=== PATIENT | male | born 2000 | race Caucasian/White ===

== ENCOUNTER 2021-11-13 12:46 | Emergency (ER) | payer OTHER, SELFPAY ==
--- NOTE | ~2021-11-13 | XR_ITS ---
EXAMINATION: XR chest 2V DATE: 11/13/2021 13:02 INDICATION: Heart palpitations. TECHNIQUE: Frontal and lateral views of the chest were obtained. COMPARISON: None. FINDINGS: The chest demonstrates clear lungs without pneumonia, pleural effusion, or pneumothorax. Th e heart size is normal. IMPRESSION: 1. No acute cardiopulmonary disease. Reviewed, dictated and finalized at location A.
[2021-11-13 12:49] VITALS: BP 135/78; PULSE 87; RESP 12; TEMP 37.2; O2SAT 98
--- NOTE | 2021-11-13 12:53 | ECG_ITS ---
Measurements Intervals [place] Rate: 94 P: 66 LA: 144 QRS: 66 QRSD: 103 T: 4 QT: 345 QTc: 431 Interpretive Statements SINUS RHYTHM WITH SINUS ARRHYTHMIA BORDERLINE ST-T WAVE ABNORMALITY- ANT/INF LEADS BASELINE ARTIFACT- I, III, AVL, V3 BORDERLINE ECG NO PREVIOUS ECG AVAILABLE FOR COMPARISON Electronically Signed On 11-13-2021 21:42:17 CDT by Bret Andre D.O.
--- NOTE | 2021-11-13 12:57 | ED.SOB ---
HPI - SOB/Dyspnea General Chief Complaint: Shortness of Breath/Dyspnea Stated Complaint: shortness of breath Time Seen by Provider: 11/13/21 12:57 History of Present Illness HPI Narrative: Patient is a 21-year-old male presenting with shortness of breath. Patient states that he was working out yesterday when he developed shortness of breath. States that it feels like the wind is being knocked out of him. States he has also had some palpitations. He denies any chest pain or lightheadedness. Denies leg swelling. States that he had a rib injury several weeks ago so he has not been working out lately. States that yesterday was the first workout that he has pushed himself since the injury. Denies fevers, cough, abdominal pain, nausea or vomiting, diarrhea, dysuria. Related Data Allergies Allergy/AdvReac Type Severity Reaction Status Date / Time No Known Allergies Allergy Verified 11/13/21 12:47 Review of Systems Review of Systems: All systems reviewed & are unremarkable except as noted in HPI and below Exam Narrative: GENERAL: Well-appearing, well-nourished, and in no acute distress. HEAD: Normocephalic, atraumatic. EYES: PERRLA and EOMI. ENT: Nares clear, no rhinorrhea or epistaxis. Mucous membranes moist. NECK: Supple. CHEST: Clear to auscultation. No respiratory distress. HEART: Regular rate and rhythm. No murmur heard. Normal peripheral pulses. ABDOMEN: Soft, nontender, nondistended, normal active bowel sounds. EXTREMITIES: Normal range of motion. No edema. SKIN: Warm, dry, no rash. NEURO: No focal deficits. Alert and oriented x3. PSYCH: Normal mood and affect. Course Vital Signs Vital signs: Vital Signs Temperature 99.0 F 11/13/21 12:49 Pulse Rate 87 11/13/21 12:49 Respiratory Rate 12 11/13/21 12:49 Blood Pressure 135/78 11/13/21 12:49 Pulse Oximetry 98 11/13/21 12:49 Oxygen Delivery Room Air 11/13/21 12:49 Temperature 99.0 F 11/13/21 12:49 Pulse Rate 64 11/13/21 14:50 Respiratory Rate 20 11/13/21 14:50 Blood Pressure 121/90 11/13/21 14:50 Pulse Oximetry 99 11/13/21 14:50 Oxygen Delivery Room Air 11/13/21 12:59 MDM - SOB/Dyspnea MDM Narrative Medical decision making narrative: Patient is a 21-year-old male presenting with shortness of breath and palpitations. Patient was slightly tachycardic on arrival, his vitals are within normal limits. Exam is unremarkable. Chest x-ray shows no acute abnormalities. EKG per my interpretation shows sinus rhythm with a sinus arrhythmia, normal axis and intervals, no ST elevations or depressions. Blood work is unremarkable. D-dimer is negative. Discussed the reassuring work-up with the patient. Advised follow-up with primary care. Appropriate return precautions given. Patient voiced understanding and is agreeable with plan. Discharged in stable condition. Lab Data Result diagrams: 11/13/21 13:16 11/13/21 13:16 Labs: Lab Results 11/13/21 11/13/21 11/13/21 Range/Units 13:16 13:16 13:16 WBC 6.2 (4.5-10.0) K/mm3 RBC 5.08 (4.6-6.20) M/mm3 Hgb 15.1 (14.0-18.0) g/dL Hct 45.1 (42.0-52.0) % MCV 88.8 (80-100) fl MCH 29.7 (26-34) pg MCHC 33.5 (32-36) g/dl RDW 12.5 (11.5-14.5) % Plt Count 198 (150-375) k/mm3 MPV 10.0 (7.4-10.4) fl Immature Gran % (Auto) 0.3 (0-0.5) % Neut % (Auto) 70.9 (45.5-73.1) % Lymph % (Auto) 21.1 (18.3-44.2) % Atkinson % (Auto) 5.8 (2.6-8.5) % Eos % (Auto) 1.6 (0-4.4) % Baso % (Auto) 0.3 (0.2-1.2) % Lymph # (Auto) 1.30 (0.9-3.2) K/mm3 Atkinson # (Auto) 0.4 (0.1-0.6) K/mm3 Eos # (Auto) 0.1 (0-0.3) K/mm3 Baso # (Auto) 0.0 (0.0-0.1) K/mm3 Abs Immat Gran (auto) 0.02 (0.00-0.031) K/mm3 Absolute Neuts (auto) 4.4 (1.3-6.7) K/mm3 Absolute Nucleated RBC 0.0 (0.0-0.012) K/mm3 Nucleated RBC % 0.0 (0.0-0.2) % D-Dimer < 0.27 (<0.48) ug/mL Sodium 138 (137-145)
[2021-11-13 12:59] VITALS: PULSE 101; O2SAT 98
[2021-11-13] MEDS: SODIUM CHLORIDE 0.9% IV 1,000 ML 999 ML IV CONT (13:25)
[2021-11-13 13:27] LABS: Basophils Percent Auto 0.3 % (0.2-1.2); Eosinophils Absolute Auto 0.1 K/mm3 (0-0.3); Eosinophils Percent Auto 1.6 % (0-4.4); Hematocrit 45.1 % (42.0-52.0); Hemoglobin 15.1 g/dL (14.0-18.0); Immature Granulocyte Absolute 0.02 K/mm3 (0.00-0.031); Immature Granulocyte Percent A 0.3 % (0-0.5); Lymphocytes Percent Auto 21.1 % (18.3-44.2); Mean Corpuscular HGB Conc 33.5 g/dl (32-36); Mean Corpuscular Hemoglobin 29.7 pg (26-34); Mean Corpuscular Volume 88.8 fl (80-100); Monocytes Absolute Auto 0.4 K/mm3 (0.1-0.6); Monocytes Percent Auto 5.8 % (2.6-8.5); Neutrophils Absolute Auto 4.4 K/mm3 (1.3-6.7); Neutrophils Percent Auto 70.9 % (45.5-73.1); Platelet Count Result 198 k/mm3 (150-375); Red Blood Count 5.08 M/mm3 (4.6-6.20); Red Cell Distribution Width 12.5 % (11.5-14.5); White Blood Count 6.2 K/mm3 (4.5-10.0)
[2021-11-13 13:40] LABS: Alanine Aminotransferase 24 U/L (6-50); Albumin Level 4.9 g/dL (3.5-5.1); Alkaline Phosphatase 81 U/L (38-126); Anion Gap 14 mmol/L (8-16); Aspartate Amino Transferase 29 U/L (17-59); Bilirubin,Total 2.4 mg/dL (0.2-1.3); Blood Urea Nitrogen 17 mg/dL (9-20); Calcium 10.3 mg/dL (8.4-10.2); Carbon Dioxide 23 mmol/L (22-30); Chloride 101 mmol/L (98-107); Estimated CRCL calculation 109 ml/min; Estimated Glomerular Filt Rate > 60; Glucose 98 mg/dL (65-110); Potassium 3.7 mmol/L (3.4-5.0); Sodium 138 mmol/L (137-145)
[2021-11-13 13:43] LABS: D Dimer < 0.27 ug/mL (<0.48)
[2021-11-13 14:08] LABS: SARS-CoV-2 RNA PCR Negative
[2021-11-13 14:50] VITALS: BP 121/90; PULSE 64; RESP 20; O2SAT 99
== END 2021-11-13 14:52 | disposition home or self-care (01) ==
PROVIDERS: Emergency Provider Emergency Medicine
DX: R06.02 Shortness of breath (principal); R00.2 Palpitations; Z20.822 Contact with and (suspected) exposure to COVID-19; R94.31 Abnormal electrocardiogram [ECG] [EKG]
CPT/HCPCS: 36415; 71046; 80053; 83735; 85025; 85380; 93005; 96360; 99284; C9803; J7030; U0003; U0005

== ENCOUNTER 2021-12-03 10:25 | Outpatient (CLI) | payer OTHER, SELFPAY ==
--- NOTE | 2021-12-03 10:44 | ECHO_ITS ---
Patient Info Name: Harvey Escudero Age: 21 years : 2000 Gender: Male Ht: 75 in Wt: 230 lbs BSA: 2.37 m2 HR: 62 bpm BP: 118 / 62 mmHg Technical Quality: Good Exam Date: 12/03/2021 11:08 AM Exam Location: [facility] Patient Status: Outpatient Admit Date: 12/03/2021 Staff Ordering Physician: Tushar Cantu MD Environmental Monitoring Technician: Shahana Field RDCS Attending Provider: Tushar Cantu MD Referring Physician: Pepe MANN; Exam Type: CA echo doppler color flow Study Info Indications R00.2 - Palpitations Complete two-dimensional, color flow and Doppler transthoracic echocardiogram is performed. Summary 1. Complete two-dimensional, color flow and Doppler transthoracic echocardiogram is performed. 2. Left ventricular chamber dimension is moderately enlarged. 3. Left ventricular systolic function is normal, estimated at 55-60%. 4. The left ventricular diastolic function is normal. 5. E/e' 4 is not elevated. 6. Left atrial chamber dimension is mildly enlarged. 7. Right atrial chamber dimension is mildly enlarged. 8. There is mild mitral valve regurgitation. 9. There is mild tricuspid valve regurgitation. 10. No pulmonary hypertension, estimated pulmonary arterial systolic pressure is 29 mmHg. 11. Dilated inferior vena cava with >50% collapse upon inspiration consistent with elevated right atrial pressure, 10 mmHg. Left Ventricle E/e' 4 is not elevated. Left ventricular chamber dimension is moderately enlarged. Left ventricular systolic function is normal, estimated at 55-60%. The left ventricular diastolic function is normal. Right Ventricle Right ventricular systolic function is normal and with normal TAPSE 2.7 cm. Right ventricular chamber dimension is normal. Left Atria Left atrial chamber dimension is mildly enlarged. Right Atria Right atrial chamber dimension is mildly enlarged. Aortic Valve The aortic valve is trileaflet. There is no aortic valve stenosis. There is no aortic valve regurgitation. Pulmonic Valve There is no pulmonic regurgitation. Mitral Valve There is no mitral valve stenosis. There is mild mitral valve regurgitation. Tricuspid Valve There is mild tricuspid valve regurgitation. No pulmonary hypertension, estimated pulmonary arterial systolic pressure is 29 mmHg. Pericardium/Pleural There is no pericardial effusion. Inferior Vena Cava Dilated inferior vena cava with >50% collapse upon inspiration consistent with elevated right atrial pressure, 10 mmHg. Aorta The aortic root size at the sinus of Valsalva is normal. Left Ventricular Outflow Tract Name Value Normal LVOT 2D LVOT Diameter 2.1 cm LVOT Doppler LVOT Peak Gradient 6 mmHg LVOT Mean Gradient 3 mmHg LVOT VTI 27 cm LVOT VTI/AV VTI Ratio 0.9 LVOT Stroke Volume 96 ml LVOT CO 17.7 l/min LVOT CI 7.5 l/min/m2 Pulmonic Valve
== END 2021-12-03 10:26 | disposition home or self-care (01) ==
LOC: ANHCARD 10:26
PROVIDERS: PCP Emergency Medicine; Visit Provider Emergency Medicine
DX: R00.2 Palpitations (principal); I51.7 Cardiomegaly
CPT/HCPCS: 93306